=== PATIENT | male | born 1950 | race Caucasian/White ===

== ENCOUNTER 2016-09-23 23:32 | Emergency (ER) | payer MEDICARE ==
--- NOTE | 2016-09-24 05:59 | ER ---
ADMIT: 09/23/2016 RM/LOC: ER [facility] MR#: [id number] [address] [facility] [id number] [place] Evelyn [address] [place] [id number] Emergency Room Report SEX: M AGE: 65 : 1950 DATE: 09/23/2016 The patient is a 65-year-old male, who awoke with pruritic eruption tonight shortly after taking his aspirin before bed, also was on amoxicillin for toothache, is allergic to naproxen. Exam remarkable for diffuse erythematous pruritic eruption with no evidence of angioedema or respiratory distress. Treated with epinephrine 0.2 mg IM, Depo-Medrol 80 mg, and Benadryl 50 mg with improvement home with prednisone 60 mg taper over [address] Daniel this week. Consider skin testing for aspirin or penicillin allergy. Fredy Go MD/ trace JOB #: [id number] CC: Fredy Go MD, Attending Physician Tiburcio Daniel MD
== END 2016-09-24 00:45 | disposition home or self-care (01) ==
LOC: ER 23:32
DX: T39.015A Adverse effect of aspirin, initial encounter (principal); L29.9 Pruritus, unspecified; I10 Essential (primary) hypertension; J44.9 Chronic obstructive pulmonary disease, unspecified; E78.5 Hyperlipidemia, unspecified; Z79.899 Other long term (current) drug therapy; Z88.8 Allergy status to other drugs, medicaments and biological substances